=== PATIENT | male | born 1990 | race Caucasian/White ===

== ENCOUNTER 2020-10-23 11:36 | Observation (INO) ==
[2020-10-23 13:04] LABS: Hematocrit 46.2 % (42.0-52.0); Hemoglobin 15.8 gm/dL (13.5-18.0); Mean Cell Volume 90.6 fl (78-100); Mean Corpuscular Hgb Conc 34.2 g/dl (32-36); Neutrophil # 5.8 K/mm3 (1.3-6.0); Neutrophil % 68.1 % (42-75.0); Platelet Count 226 K/mm3 (150-450); Red Cell Distribution Width 15.3 % (11.5-14.0); White Blood Count 8.5 K/mm3 (4.0-10.5)
[2020-10-23 13:19] LABS: Albumin * 3.3 gm/dl (3.4-5.0); Anion Gap 13.3 mmol/L (6.8-13.8); BUN/Creatinine Ratio 9.1 (9.0-21.6); Bilirubin, Total 1.1 mg/dL (0.0-1.1); Ca. Corrected For Albumin 8.5 mg/dL (8.4-10.2); Calcium * 8.3 mg/dL (7.9-10.9); Carbon Dioxide 28.1 mmol/L (24-32.6); Potassium 3.4 mmol/L (3.4-4.6); Total Protein 6.8 gm/dL (6.2-8.2)
[2020-10-23] MEDS ORDERED: VANCOMYCIN/WATER FOR INJ (PEG) 1 GM/200 ML BAG IV ONE (13:43)
--- NOTE | 2020-10-23 15:23 | ERNOTE ---
Medical Problem HPI - Narrative Date of Service: 10/23/20 - General Chief Complaint: Alcohol Intoxication Time Seen by Provider: 10/23/20 12:20 Source: patient - Immun/Allergies/Home Medications Immunizations: IMMUNIZATION HX Immunizations Up to Date Yes History of Influenza Vaccine Yes Hx Pneumococcal Vaccination No Allergies/Adverse Reactions: Allergies No Known Allergies Allergy (Verified 09/26/20 13:47) Home Medications: HOME MEDICATIONS lorazepam 1 mg tablet 1 mg PO TID PRN #90 tab 09/26/20 [Last Taken Unknown] propranolol 20 mg tablet 20 mg PO TID PRN #90 tab 09/26/20 [Last Taken Unknown] - History of Present History Narrative: 30-year-old male presents with mother for concerns of EtOH intoxication and a lesion to the left hand. Mother reports patient has been fighting alcoholism and his mental illnesses. He was previously diagnosed with bipolar disorder and depression. Mother reports that he indulged in an excessive amount of whiskey prior to being brought into the emergency department today. Patient reports that his last drink was last night. Patient also reports the past 3 days he has had a weeping lesion on the palm of his left hand. To drain the lesion which only resulted in additional swelling. He denies fevers or chills. Patient denies any thoughts of suicide ideation/homicidal ideation. Timing: constant Severity: moderate Review of Systems - Narrative Narrative: REVIEW OF SYSTEMS GENERAL: Negative for any nausea, vomiting, fevers, chills, or weight loss. HEENT: Negative for sore throats, congestion, changes in vision, changes in hearing, CARDIAC: Negative for any chest pain, dyspnea, or palpitations. PULMONARY: Negative for any shortness of breath, cough, or wheezing. GASTROINTESTINAL: Negative for any abdominal pain, nausea, vomiting, constipation, or diarrhea. GENITOURINARY: Negative for any dysuria, changes in urine output. INTEGUMENTARY: Negative for any rashes with exception of lesion to left hand. NEUROLOGIC: Negative for changes in vision or headaches. RHEUMATOLOGIC: Negative for any joint pains, Medical History (Last Reviewed 10/23/20 @ 15:16 by Ovidio Dempsey MD) Bipolar disorder (Chronic) Major depressive disorder (Acute) Generalized anxiety disorder (Chronic) Abdominal pain (Acute) Anxiety Depression Insomnia Onset Date: Unknown Surgical History: Surgical History (Last Reviewed 10/23/20 @ 15:16 by Ovidio Dempsey MD) Hx of tonsillectomy Onset Date: Unknown Family History: Family History (Last Reviewed 10/23/20 @ 15:16 by Ovidio Dempsey MD) Father Diabetes Anxiety Social History: (Last Reviewed 10/23/20 @ 15:16 by Ovidio Dempsey MD) Social History: adopted: No Marital status: Single household members: none current occupational status: employed current occupation: [employer] Highest level of school completed/degree received: high school graduate Service: Yes branch: [employer] Tobacco: Smoking Status: Former smoker Smokeless tobacco user: chewing tobacco Alcohol: alcohol intake: former alcohol intake frequency: 3 or more drinks per day details: quit may 2020 Substance Use: substance use type: does not use Dietary Habits: caffeine: No Physical Exam - Physical Exam General Appearance: Present: wd/wn, alert, no apparent distress Head Exam: Present: normal inspection, no evidence of injury Ears, Nose, Throat: Present: normal ENT inspection Respiratory: Present: no respiratory distress, normal breath sounds, no accessory muscle use Cardiovascular/Chest: Present: regular rate, rhythm, no murmur, normal peripheral pulses Extremity Exam: Present: other - Swelling over the thenar eminence with a centralized lesion was serosanguineous fluid drainage, discoloration, and tenderness surrounding the hand. Neurological Exam: Present: alert, other - Slurring of speech, patient appears to be intoxicated with alcohol. Skin Exam: Present: normal color Lymphatic Exam: Present: no adenopathy Progress - Results and Orders Patient's Lab Results:: I have reviewed the patient's lab results. - Vital Signs Patient's Vital Signs:: I have reviewed the patient's vital signs. Vital Signs: Vital Signs 10/23/20 11:42 10/23/20 11:50 10/23/20 12:53 Temperature 36.9 C Pulse Rate 97 97 94 Respiratory Rate 20 20 Blood Pressure 144/92 H 160/110 H O2 Sat by Pulse Oximetry 96 10/23/20 13:44 10/23/20 14:05 10/23/20 14:28 Temperature Pulse Rate 95 96 92 Respiratory Rate 18 21 H 25 H Blood Pressure 122/70 112/61 O2 Sat by Pulse Oximetry 96 96 95 10/23/20 14:45 Temperature Pulse Rate 95 Respiratory Rate 22 H Blood Pressure 121/64 O2 Sat by Pulse Oximetry 94 - Progress/Reassessment Chief Complaint: Alcohol Intoxication Progress:: Unchanged Progress Note-Subjective: 10/23/20 15:21 30-year-old male presenting with alcohol intoxication and a left hand cellulitis. Given patient's likelihood of poor outpatient follow-up, he will be started on vancomycin here and treated inpatient for his cellulitis. Wound cultures and blood cultures were obtained prior to starting antibiotics. No physical exam findings consistent with acute necrotizing fasciitis at this time however this was on the differential. Imaging shows no gaseous formations or collections. - Transfer of Care Expected Disposition: Admit Departure Clinical Impression: Cellulitis and abscess of hand - Departure Disposition: Still a patient Condition: Fair
[2020-10-23] MEDS ORDERED: ONDANSETRON HCL/PF 2 MG/ML VIAL IV PRN (17:06)
[2020-10-23] MEDS: KETOROLAC TROMETHAMINE 30 MG/ML VIAL IV SCH ×2 (18:02→23:59)
[2020-10-23] MEDS: PROPRANOLOL HCL 20 MG TABLET PO PRN (20:21)
[2020-10-23] MEDS: QUEtiapine FUMARATE 25 MG TABLET PO SCH (20:24)
[2020-10-23] MEDS: FAMOTIDINE 20 MG TABLET PO SCH (20:24)
[2020-10-23] MEDS: LORazepam 1 MG TABLET PO PRN (21:23)
[2020-10-23 21:28] LABS: Urine Bilirubin Negative (NEGATIVE); Urine Blood Negative /ul (NEGATIVE); Urine Ketone Negative (NEGATIVE); Urine Nitrite Negative (NEGATIVE); Urine Protein Negative (NEGATIVE); Urine Urobilinogen Normal (NORMAL)
[2020-10-23 21:29] LABS: Urine Appearance Clear (CLEAR); Urine Color Yellow
[2020-10-23 21:30] LABS: Urine Bacteria None Seen; Urine RBC None Seen /hpf (0-5); Urine WBC None Seen /hpf (0-5)
[2020-10-23 21:37] LABS: Cocaine Ur Negative (NEGATIVE); Urine Barbiturate Negative (NEGATIVE); Urine Benzodiazepines Negative (NEGATIVE); Urine Opiates Negative (NEGATIVE); Urine PCP Negative (NEGATIVE); Urine THC Negative (NEGATIVE)
[2020-10-24] MEDS: KETOROLAC TROMETHAMINE 30 MG/ML VIAL IV SCH ×2 (05:15→11:50)
[2020-10-24] MEDS: PROPRANOLOL HCL 20 MG TABLET PO PRN (07:04)
[2020-10-24] MEDS: LORazepam 1 MG TABLET PO PRN (07:05)
--- NOTE | 2020-10-24 08:47 | HP ---
Chief Complaint - Chief Complaint Date of Service: 10/23/20 Time of Service: 17:00 Chief Complaint: Left hand swelling, found down intoxicated History of Present Illness: Junior is a 30 yo male that was found down, passed out at home. He was brought to the ER by family. He was able to be awakened and appeared intoxicated. He admitted to drinking whiskey last night. He does not recall exactly how much he drank. He reports depression and family reports he was diagnosed with bipolar disorder. He has had more problems with alcohol recently and family thinks he has been seeing more effects from alcohol since being started on bipolar medications. In regards to the left hand he reports no trauma or known injury. He woke up with the left thumb pad swollen and red three days ago with a blister. He reports popping the blister with a knife and trying to dig out any infection. He reports getting some clear fluid out. He denies pain, fever, chills. He has decreased movement in his had due to swelling. History is a little hindered by patient's intoxication/behavior. Personality appears immature. Medical History (Last Reviewed 10/23/20 @ 15:51 by Carlton Yin RN) Bipolar disorder (Chronic) Major depressive disorder (Acute) Generalized anxiety disorder (Chronic) Abdominal pain (Acute) Anxiety Depression Insomnia Onset Date: Unknown Surgical History: Surgical History (Last Reviewed 10/23/20 @ 15:51 by Carlton Yin RN) Hx of tonsillectomy Onset Date: Unknown Family History: Family History (Last Reviewed 10/23/20 @ 15:52 by Carlton Yin RN) Father Diabetes Anxiety Social History: (Last Reviewed 10/23/20 @ 15:52 by Carlton Yin RN) Social History: adopted: No Marital status: Single household members: none current occupational status: employed current occupation: [employer] Highest level of school completed/degree received: high school graduate Service: Yes branch: [employer] Tobacco: Smoking Status: Former smoker Smokeless tobacco user: chewing tobacco Alcohol: alcohol intake: former alcohol intake frequency: 3 or more drinks per day details: quit may 2020 Substance Use: substance use type: does not use Dietary Habits: caffeine: No Review Of Systems (GEN) - Review of Systems Generalized/Overall Review: Absent: Weakness, Chills, Fever EENTM: Present: No Symptoms Reported Respiratory: Absent: Cough, Shortness of Breath Cardiac: Absent: Chest Pain, Palpitations Abdominal: Present: Nausea, Abdominal Pain. Absent: Constipation, Diarrhea Genitourinary: Present: No Symptoms Reported Musculoskeletal: Present: Joint Swelling. Absent: Joint Pain Skin: Present: Lesions Immunizations: IMMUNIZATION HX Immunizations Up to Date Yes History of Influenza Vaccine Yes Hx Pneumococcal Vaccination No Allergies/Adverse Reactions: Allergies Allergy/AdvReac Type Severity Reaction Status Date / Time No Known Allergies Allergy Verified 10/23/20 15:52 Home Medications: HOME MEDICATIONS lorazepam 1 mg tablet 1 mg PO TID PRN #90 tab 09/26/20 [Last Taken Unknown] propranolol 20 mg tablet 20 mg PO TID PRN #90 tab 09/26/20 [Last Taken Unknown] QUEtiapine FUMARATE [Quetiapine Fumarate ER] 1 - 2 tab PO HS 10/23/20 [Last Taken 10/22/20 20:00] Exam - Exam Vital Signs: Vital Signs - Last Taken Temp 36.8 C 10/24/20 06:58 Pulse 85 10/24/20 07:04 Resp 20 10/24/20 06:58 BP 152/103 H 10/24/20 07:04 Pulse Ox 98 10/24/20 06:58 Constitutional: Present: Alert, Oriented x3, Cooperative, Other - personality appears immature/intoxicated. Affect is flat. Eye Exam: bilateral eye: normal inspection Respiratory: Present: lungs clear, normal breath sounds Cardiovascular/Chest: Present: regular rate, rhythm, no murmur Peripheral Pulses: radial (R): 2+, radial (L): 2+ Abdomen: Present: Normal bowel sounds, soft, nontender, nondistended Skin Exam: Present: other - left thenar emminence swollen with areas of ecchymosis, central ulcerated area of 3mm, no active drainage. Nontender. Decreased ROM due to swelling. Lymphatic: Present: no adenopathy Neurologic: Present: alert, oriented x 3 Appearance: Present: impaired recent memory Eye contact: Present: cooperative, avoids eye contact, decreased rate of speech Thoughts: Present: other - flat affect Diagnostic Studies: Abnormal Lab Results 10/23/20 10/23/20 10/23/20 Range/Units 12:55 12:55 12:55 RDW 15.3 H (11.5-14.0) % Lymphocytes % 19.1 L (20-51) % Basophils % 1.2 H (0.0-1.0) % Sodium 145 H (132-142) mmol/L Plasma Sodium 145 H (130-142) mmol/L Chloride 107 H (97-106) mmol/L Random Glucose 120 H (70-110) mg/dL Lactic Acid, Venous 2.1 H (0.4-2.0) mmol/L AST 185 H (0-48) U/L ALT 140 H (19-67) U/L Albumin 3.3 L (3.4-5.0) gm/dl Ethyl Alcohol 406.0 H (0.0-10.0) mg/dL 10/23/20 Range/Units 16:06 RDW (11.5-14.0) % Lymphocytes % (20-51) % Basophils % (0.0-1.0) % Sodium (132-142) mmol/L Plasma Sodium (130-142) mmol/L Chloride (97-106) mmol/L Random Glucose (70-110) mg/dL Lactic Acid, Venous 2.1 H (0.4-2.0) mmol/L AST (0-48) U/L ALT (19-67) U/L Albumin (3.4-5.0) gm/dl Ethyl Alcohol (0.0-10.0) mg/dL Microbiology 10/23/20 12:46 Wound Culture - Preliminary Hand - Left Staphylococcus Species Laboratory Results WBC 8.5 K/mm3 (4.0-10.5) 10/23/20 12:55 RBC 5.10 M/mm3 (4.7-6.0) 10/23/20 12:55 Hgb 15.8 gm/dL (13.5-18.0) 10/23/20 12:55 Hct 46.2 % (42.0-52.0) 10/23/20 12:55 MCV 90.6 fl (78-100) 10/23/20 12:55 MCH 31.0 pg (27-31) 10/23/20 12:55 MCHC 34.2 g/dl (32-36) 10/23/20 12:55 RDW 15.3 % (11.5-14.0) H 10/23/20 12:55 Plt Count 226 K/mm3 (150-450) 10/23/20 12:55 MPV 9.0 fl (8-11.3) 10/23/20 12:55 Immature Gran % (Auto) 0.40 % (0.001-0.429) 10/23/20 12:55 Immature Gran # (Auto) 0.03 K/mm3 (0.000-0.0310) 10/23/20 12:55 Neutrophils % 68.1 % (42-75.0) 10/23/20 12:55 Lymphocytes % 19.1 % (20-51) L 10/23/20 12:55 Monocytes % 9.0 % (0.0-9) 10/23/20 12:55 Eosinophils % 2.2 % (0.0-3.0) 10/23/20 12:55 Basophils % 1.2 % (0.0-1.0) H 10/23/20 12:55 Nucleated RBC % 0.0 k/mm3 (0-1) 10/23/20 12:55 Neutrophils # 5.8 K/mm3 (1.3-6.0) 10/23/20 12:55 Lymphocytes # 1.62 k/mm3 (1.5-3.5) 10/23/20 12:55 Monocytes # 0.8 k/mm3 (0.0-1.0) 10/23/20 12:55 Eosinophils # 0.2 k/mm3 (0.0-0.7) 10/23/20 12:55 Absolute Basophils 0.1 k/mm3 (0.0-0.1) 10/23/20 12:55 Sodium 145 mmol/L (132-142) H 10/23/20 12:55 Plasma Sodium 145 mmol/L (130-142) H 10/23/20 12:55 Potassium 3.4 mmol/L (3.4-4.6) 10/23/20 12:55 Chloride 107 mmol/L (97-106) H 10/23/20 12:55 Carbon Dioxide 28.1 mmol/L (24-32.6) 10/23/20 12:55 Anion Gap 13.3 mmol/L (6.8-13.8) 10/23/20 12:55 BUN 9 mg/dL (6-23) 10/23/20 12:55 Creatinine 0.99 mg/dL (0.4-1.4) 10/23/20 12:55 Est GFR (Non-Af Amer) 94 mL/min (60-130) 10/23/20 12:55 BUN/Creatinine Ratio 9.1 (9.0-21.6) 10/23/20 12:55 Random Glucose 120 mg/dL (70-110) H 10/23/20 12:55 Lactic Acid, Venous 2.1 mmol/L (0.4-2.0) H 10/23/20 16:06 Calcium 8.3 mg/dL (7.9-10.9) 10/23/20 12:55 Calcium Adj for Albumin 8.5 mg/dL (8.4-10.2) 10/23/20 12:55 Total Bilirubin 1.1 mg/dL (0.0-1.1) 10/23/20 12:55 AST 185 U/L (0-48) H 10/23/20 12:55 ALT 140 U/L (19-67) H 10/23/20 12:55 Alkaline Phosphatase 90 U/L (50-170) 10/23/20 12:55 Total Protein 6.8 gm/dL (6.2-8.2) 10/23/20 12:55 Albumin 3.3 gm/dl (3.4-5.0) L 10/23/20 12:55 Urine Color Yellow 10/23/20 20:43 Urine Appearance Clear (CLEAR) 10/23/20 20:43 Urine pH 6.0 pH (5.0-7.0) 10/23/20 20:43 Ur Specific [place] 1.010 SP.GR. (1.005-1.030) 10/23/20 20:43 Urine Protein Negative mg/dL (NEGATIVE) 10/23/20 20:43 Urine Glucose (UA) Negative mg/dL (NEGATIVE) 10/23/20 20:43 Urine Ketones Negative mg/dL (NEGATIVE) 10/23/20 20:43 Urine Blood Negative /ul (NEGATIVE) 10/23/20 20:43 Urine Nitrate Negative (NEGATIVE) 10/23/20 20:43 Urine Bilirubin Negative mg/dl (NEGATIVE) 10/23/20 20:43 Urine Urobilinogen Normal EU/dl (NORMAL) 10/23/20 20:43 Ur Leukocyte Esterase Negative /ul (NEGATIVE) 10/23/20 20:43 Urine RBC None seen /hpf (0-5) 10/23/20 20:43 Urine WBC None seen /hpf (0-5) 10/23/20 20:43 Ur Epithelial Cells None seen /hpf (0-5) 10/23/20 20:43 Urine Bacteria None seen (NONE) 10/23/20 20:43 Urine Culture Comments No culture indicated 10/23/20 20:43 Vancomycin 0 mcg/mL 10/23/20 12:55 Urine Opiates Screen Negative (NEGATIVE) 10/23/20 20:43 Barbiturate Screen Negative (NEGATIVE) 10/23/20 20:43 Ur Phencyclidine Scrn Negative (NEGATIVE) 10/23/20 20:43 Urine Amphetamine Negative (NEGATIVE) 10/23/20 20:43 U Benzodiazepines Scrn Negative (NEGATIVE) 10/23/20 20:43 Urine Cocaine Screen Negative (NEGATIVE) 10/23/20 20:43 Urine Marijuana (THC) Negative (NEGATIVE) 10/23/20 20:43 Ethyl Alcohol 406.0 mg/dL (0.0-10.0) H 10/23/20 12:55 SARS-CoV-2 (PCR) Not detected (NotDetected) 10/23/20 13:55 Assessment/Plan - Narrative Narrative: Junior is a 30 yo male who was found down after apparent intoxication. He also has left hand swelling of unknown injury. He is alert and oriented x 3 although behavior is different. This may be intoxication vs bipolar personality disorder. Will monitor. He has no leukocytosis, but lactic acid is elevated. He was given a dose of vancomycin in the ER and a hand xray that was negative for acute change. I do not see evidence of cellulitis. There is thenar swelling and an ulceration where he used his knife. I will evaluate with an MRI with contrast to evaluate for abscess vs cellulitis vs osteomyelitis vs tender/ligament injury. I am unsure of the cause to the injury as he is a poor historian, does not appear to be in pain, and has an elevated lactic acid but no leukocytosis. Will admit to observation and if no evidence of infection on the MRI will plan to discharge to home. Will await the MRI results for further antibiotics as I am not convinced of an infection. - Assessment/Plan (1) Swelling of joint, hand, left Problem: Acute (2) Bipolar disorder Problem: Chronic Qualifiers: Active/Remission status: currently active
[2020-10-24] MEDS: FAMOTIDINE 20 MG TABLET PO SCH (09:53)
[2020-10-24] MEDS: QUEtiapine FUMARATE 25 MG TABLET PO SCH (09:54)
[2020-10-24 10:02] LABS: Hematocrit 41.9 % (42.0-52.0); Hemoglobin 14.4 gm/dL (13.5-18.0); Mean Cell Volume 90.9 fl (78-100); Mean Corpuscular Hemoglobin 31.2 pg (27-31); Mean Corpuscular Hgb Conc 34.4 g/dl (32-36); Mean Platelet Volume 8.9 fl (8-11.3); Neutrophil # 8.5 K/mm3 (1.3-6.0); Neutrophil % 81.9 % (42-75.0); Platelet Count 200 K/mm3 (150-450); Red Blood Count 4.61 M/mm3 (4.7-6.0); Red Cell Distribution Width 15.2 % (11.5-14.0); White Blood Count 10.4 K/mm3 (4.0-10.5)
[2020-10-24 10:12] LABS: Albumin * 3.1 gm/dl (3.4-5.0); Anion Gap 15.1 mmol/L (6.8-13.8); Bilirubin, Total 2.2 mg/dL (0.0-1.1); Ca. Corrected For Albumin 8.8 mg/dL (8.4-10.2); Calcium * 8.4 mg/dL (7.9-10.9); Carbon Dioxide 22.3 mmol/L (24-32.6); Potassium 3.4 mmol/L (3.4-4.6); Total Protein 6.3 gm/dL (6.2-8.2)
--- NOTE | 2020-10-24 13:13 | DS ---
(1) Swelling of joint, hand, left Problem: Acute (2) Bipolar disorder Problem: Chronic Qualifiers: Active/Remission status: currently active Date of Discharge:: 10/24/20 Hospital Course: Junior was admitted for concerns for cellulitis vs abscess of hand vs osteomyelitis as well as alcohol intoxication with being found down on the ground. He was admitted and given toradol for pain and swelling. He was given a dose of vancomycin in the ER but this was stopped and an MRI of the left hand was performed to get an answer on his hand and evaluate for abscess vs osteomyelitis. MRI showed extensive inflammation and no abscess, osteomyelitis, or tears present. He has sobered up and his mentation is much improved. He will be discharged to home today. He agrees to needing help with alcohol dependence. Will use lorazepam for prn withdrawal/anxiety symptoms. Will prescribe antabuse and naltrexone. Procedures Performed: none Results and Findings: Pending Mircobiology Results 10/23/20 12:46 Hand - Left Wound Culture - Preliminary Staphylococcus Species Lab Pending Results 10/23/20 12:55: WBC 8.5, RBC 5.10, Hgb 15.8, Hct 46.2, MCV 90.6, MCH 31.0, MCHC 34.2, RDW 15.3 H, Plt Count 226, MPV 9.0, Immature Gran % (Auto) 0.40, Immature Gran # (Auto) 0.03, Neutrophils % 68.1, Lymphocytes % 19.1 L, Monocytes % 9.0, Eosinophils % 2.2, Basophils % 1.2 H, Nucleated RBC % 0.0, Neutrophils # 5.8, Lymphocytes # 1.62, Monocytes # 0.8, Eosinophils # 0.2, Absolute Basophils 0.1 10/23/20 12:55: Sodium 145 H, Plasma Sodium 145 H, Potassium 3.4, Chloride 107 H, Carbon Dioxide 28.1, Anion Gap 13.3, BUN 9, Creatinine 0.99, Est GFR (Non-Af Amer) 94, BUN/Creatinine Ratio 9.1, Random Glucose 120 H, Calcium 8.3, Calcium Adj for Albumin 8.5, Total Bilirubin 1.1, AST 185 H, ALT 140 H, Alkaline Phosphatase 90, Total Protein 6.8, Albumin 3.3 L, Vancomycin 0, Ethyl Alcohol 4 06.0 H 10/23/20 12:55: Lactic Acid, Venous 2.1 H 10/23/20 13:55: SARS-CoV-2 (PCR) Not detected 10/23/20 16:06: Lactic Acid, Venous 2.1 H 10/23/20 20:43: Urine Color Yellow, Urine Appearance Clear, Urine pH 6.0, Ur Specific [place] 1.010, Urine Protein Negative, Urine Glucose (UA) Negative, Urine Ketones Negative, Urine Blood Negative, Urine Nitrate Negative, Urine Bilirubin Negative, Urine Urobilinogen Normal, Ur Leukocyte Esterase Negative, Urine RBC None seen, Urine WBC None seen, Ur Epithelial Cells None seen, Urine Bacteria None seen, Urine Culture Comments No culture indicated 10/23/20 20:43: Urine Opiates Screen Negative, Barbiturate Screen Negative, Ur Phencyclidine Scrn Negative, Urine Amphetamine Negative, U Benzodiazepines Scrn Negative, Urine Cocaine Screen Negative, Urine Marijuana (THC) Negative 10/24/20 09:53: WBC 10.4 D, RBC 4.61 L, Hgb 14.4, Hct 41.9 L, MCV 90.9, MCH 31.2 H, MCHC 34.4, RDW 15.2 H, Plt Count 200, MPV 8.9, Immature Gran % (Auto) 0.40, Immature Gran # (Auto) 0.04 H, Neutrophils % 81.9 H, Lymphocytes % 8.6 L, Monocytes % 6.6, Eosinophils % 1.4, Basophils % 1.1 H, Nucleated RBC % 0.0, Neutrophils # 8.5 H, Lymphocytes # 0.89 L, Monocytes # 0.7, Eosinophils # 0.2, Absolute Basophils 0.1 10/24/20 09:53: Sodium 134, Plasma Sodium 134, Potassium 3.4, Chloride 100, Carbon Dioxide 22.3 L, Anion Gap 15.1 H, BUN 11, Creatinine 0.92, Est GFR (Non- Af Amer) 103, BUN/Creatinine Ratio 12.0, Random Glucose 109, Calcium 8.4, Calcium Adj for Albumin 8.8, Total Bilirubin 2.2 H, AST 158 H, ALT 133 H, Alkaline Phosphatase 88, Total Protein 6.3, Albumin 3.1 L 10/24/20 09:53: Lactic Acid, Venous 2.2 H* Discharge Location: Home Disposition: Home self-care Condition: Fair Discharge Activity: Activity as tolerated Discharge Diet: General/regular food Referrals: David Gregory DO [Primary Care Provider] - One Week Problem Oriented Discharge Instructions to Patient/Family: Alcohol Use Disorder Prescriptions (Any new or edited meds): Disulfiram [Antabuse] 250 mg PO DAILY #30 tab Transmission Status: Pending to [facility] #24619 Lorazepam 1 mg PO TID PRN #90 tab PRN Reason: anxiety Transmission Status: Received by [facility] #[id number] Naltrexone HCl [ReVia] 50 mg PO DAILY #30 tab Transmission Status: Pending to [facility] #04615 Complete Home Medications List: Complete Home Medication List: propranolol 20 mg tablet 20 mg PO TID PRN #90 tab 09/26/20 QUEtiapine FUMARATE [Quetiapine Fumarate ER] 1 - 2 tab PO HS 10/23/20 Disulfiram [Antabuse] 250 mg PO DAILY #30 tab 10/24/20 Lorazepam 1 mg PO TID PRN #90 tab 10/24/20 Naltrexone HCl [ReVia] 50 mg PO DAILY #30 tab 10/24/20 Forms: Patient Portal Registration
[2020-10-24 13:34] VITALS: BP 152/85
== END 2020-10-24 13:40 | disposition home or self-care (01) ==
LOC: MS 11:36 → ER 11:36 → MS 15:40
PROVIDERS: ADMIT Family Medicine; ATTEND Family Medicine
DX: F31.89 Other bipolar disorder; M25.442 Effusion, left hand; F10.229 Alcohol dependence with intoxication, unspecified